=== PATIENT | male | born 1990 | race African-American/Black ===

== ENCOUNTER 2016-12-03 12:54 | Emergency (ER) | payer SELFPAY ==
[2016-12-03 13:26] VITALS: BP 128/75
--- NOTE | 2016-12-03 14:07 | UC ---
UC Dental HPI - HPI Summary HPI Summary: pain in left lower jaw, broken and painful lower 3 rd molar from the back (2 molar from the back has been removed) - History of Current Complaint Chief Complaint: UCDentalProblem Stated Complaint: TOOTH ACHE Time Seen by Provider: 12/03/16 13:50 Hx Obtained From: Patient Onset/Duration: Gradual Onset, Lasting Weeks, Worse Since - past few days Severity: Moderate Pain Intensity: 6 Pain Scale Used: 0-10 Numeric Aggravating: Heat, Cold, Chewing Related History: Previous Dental Care on Same Tooth, Swelling - Allergies/Home Medications Allergies/Adverse Reactions: Allergies Allergy/AdvReac Type Severity Reaction Status Date / Time No Known Allergies Allergy Verified 12/03/16 13:23 PMH/Surg Hx/FS Hx/Imm Hx Previously Healthy: Yes Endocrine History Of: Denies: Diabetes, Thyroid Disease Cardiovascular History Of: Denies: Cardiac Disorders, Hypertension Respiratory History Of: Denies: COPD, Asthma GI/ History Of: Denies: Ulcer - Surgical History Surgical History: None - Family History Known Family History: Positive: None Family History: denies cardio vascular issues in family lineage - Social History Occupation: Unemployed Lives: With Family Alcohol Use: None Substance Use Type: None Smoking Status (MU): Light Every Day Tobacco Smoker Have You Smoked in the Last Year: Yes Cessation Counseling: Counseled 3+Min - 10 Min Review of Systems Constitutional: Fever Skin: Negative Eyes: Negative ENT: Dental Pain Respiratory: Negative Cardiovascular: Negative Gastrointestinal: Negative Genitourinary: Negative Motor: Negative Neurovascular: Negative Musculoskeletal: Negative Neurological: Negative Psychological: Negative All Other Systems Reviewed And Are Negative: Yes Physical Exam Triage Information Reviewed: Yes Appearance: Well-Nourished, Ill-Appearing - mild, Pain Distress - mild Vital Signs: Initial Vital Signs Temp 99.2 F 12/03/16 13:23 Pulse 72 12/03/16 13:23 Resp 16 12/03/16 13:23 BP 128/75 12/03/16 13:23 Pulse Ox 98 12/03/16 13:23 Vital Signs Reviewed: Yes Eye Exam: Normal Eyes: Positive: Conjunctiva Clear ENT Exam: Normal ENT: Positive: Normal ENT inspection, Hearing grossly normal, Pharynx normal, TMs normal. Negative: Nasal congestion, Nasal drainage, Tonsillar swelling, Tonsillar exudate, Trismus, Muffled/hoarse voice Dental: Positive: Gross Decay/Caries @ - 3 molar from the last on left lower, Abscess @ - lower back Neck exam: Normal Neck: Positive: Supple, Nontender, No Lymphadenopathy Respiratory Exam: Normal Respiratory: Positive: Chest non-tender, Lungs clear, Normal breath sounds, No respiratory distress, No accessory muscle use Cardiovascular Exam: Normal Cardiovascular: Positive: RRR, No Murmur, Pulses Normal, Brisk Capillary Refill Musculoskeletal Exam: Normal Musculoskeletal: Positive: Strength Intact, ROM Intact, No Edema Neurological Exam: Normal Neurological: Positive: Alert, Muscle Tone Normal Psychological Exam: Normal Psychological: Positive: Normal Response To Family, Age Appropriate Behavior Skin Exam: Normal Dental Complaint Course/Dx - Course Course Of Treatment: amoxicillin, ibuprofen, resources for dental care and insurance, nicotine cesation education - Differential Dx/Diagnosis Differential Diagnosis/Dx: Dental Caries, Fractured Tooth, Peridontic Disease, Peritonsillar Abcess, Pharyngitis Provider Diagnoses: dental abscess dental caries left lower jaw, nicotine dependant Discharge - Discharge Plan Condition: Stable Disposition: HOME Prescriptions: Amoxicillin CAP* 500 mg PO TID #30 cap Ibuprofen TAB* [Motrin TAB* 600 MG] 600 mg PO Q6H PRN #40 tab PRN Reason: pain Patient Education Materials: Nicotine (By breathing), How to Stop Smoking (ED) , Dental Abscess (ED), Dental Caries (ED) Referrals: [facility] [Provider Group] - As Soon As Possible [facility] [[facility]] - If Needed Additional Instructions: Follow with Dentist early next week
== END 2016-12-03 14:20 | disposition home or self-care (01) ==
LOC: UCEAST 12:54
DX: K04.7 Periapical abscess without sinus (principal); K02.9 Dental caries, unspecified; F17.210 Nicotine dependence, cigarettes, uncomplicated
CPT/HCPCS: 99202; G0463

== ENCOUNTER 2017-03-09 07:23 | Emergency (ER) | payer SELFPAY ==
[2017-03-09 07:36] VITALS: BP 137/77
--- NOTE | 2017-03-09 08:09 | UC ---
Hand/Wrist HPI - HPI Summary HPI Summary: right hand pain x 1 day injury to right hand , pt. punched the wall using his right hand + pain and swelling of the right hand - History Of Current Complaint Chief Complaint: UCUpperExtremity Stated Complaint: RIGHT HAND INJURY Time Seen by Provider: 03/09/17 07:44 Hx Obtained From: Patient Onset/Duration: Sudden Onset, Lasting Days - 1, Still Present Severity Initially: Moderate Severity Currently: Moderate Character Of Pain: Aching, Throbbing Aggravating Factor(s): Movement, Lifting, Flexion, Extension Alleviating: Rest, Ice Associated Signs And Symptoms: Positive: Swelling, Weakness - Allergies/Home Medications Allergies/Adverse Reactions: Allergies Allergy/AdvReac Type Severity Reaction Status Date / Time No Known Allergies Allergy Verified 03/09/17 07:30 PMH/Surg Hx/FS Hx/Imm Hx Previously Healthy: Yes Endocrine History Of: Denies: Diabetes, Thyroid Disease Cardiovascular History Of: Denies: Cardiac Disorders, Hypertension Respiratory History Of: Denies: COPD, Asthma GI/ History Of: Denies: Ulcer - Surgical History Surgical History: None - Family History Known Family History: Positive: None Negative: Diabetes Family History: denies cardio vascular issues in family lineage - Social History Alcohol Use: None Substance Use Type: None Smoking Status (MU): Former Smoker Have You Smoked in the Last Year: Yes When Did the Patient Quit Smoking/Using Tobacco: 6 months ago Review of Systems Constitutional: Negative Skin: Negative Eyes: Negative ENT: Negative Respiratory: Negative Musculoskeletal: Other: - right hand pain All Other Systems Reviewed And Are Negative: Yes Physical Exam Triage Information Reviewed: Yes Appearance: Well-Appearing, No Pain Distress, Well-Nourished Vital Signs: Initial Vital Signs Temp 98.9 F 03/09/17 07:31 Pulse 64 03/09/17 07:31 Resp 18 03/09/17 07:31 BP 137/77 03/09/17 07:31 Pulse Ox 98 03/09/17 07:31 Eyes: Positive: Conjunctiva Clear ENT: Positive: Normal ENT inspection, Hearing grossly normal, Pharynx normal Neck exam: Normal Neck: Positive: Supple, Nontender, No Lymphadenopathy Respiratory: Positive: Chest non-tender, Lungs clear, Normal breath sounds, No respiratory distress Cardiovascular: Positive: RRR, No Murmur, Pulses Normal Abdominal Exam: Normal Musculoskeletal: Positive: Other: - right hand : + swelling, tenderness 3,4,5, metacarpal bone , limited ROM on flexion Diagnostics - Laboratory ABG Interpretation: right hand : no acute fracture seen Hand/Wrist Course/Dx - Differential Dx/Diagnosis Provider Diagnoses: contusion right hand Discharge - Discharge Plan Condition: Stable Disposition: HOME Patient Education Materials: Contusion in Adults (ED) Referrals: No Primary Care Phys,NOPCP [Primary Care Provider] - 7 Days Additional Instructions: contusion hand xray showed old fracture , no new fracture cont. with rest, ice, ibuprofen as needed for pain
--- NOTE | 2017-03-09 08:17 | RAD ---
INDICATION: Right hand pain COMPARISON: None TECHNIQUE: AP, lateral, and oblique views were obtained. FINDINGS: There is no acute fracture. There is mild deformity of the fifth metacarpal consistent with an old fracture. There is minor soft tissue swelling over the dorsum of the hand. IMPRESSION: NO ACUTE FRACTURE. OLD FIFTH METACARPAL FRACTURE
== END 2017-03-09 08:32 | disposition home or self-care (01) ==
LOC: UCCORT 07:23
DX: S60.221A Contusion of right hand, initial encounter (principal); W22.8XXA Striking against or struck by other objects, initial encounter; Y93.9 Activity, unspecified; Y92.9 Unspecified place or not applicable; Z87.891 Personal history of nicotine dependence
CPT/HCPCS: 99211; G0463

== ENCOUNTER 2017-04-07 11:15 | Emergency (ER) | payer SELFPAY ==
[2017-04-07 11:36] VITALS: BP 106/64
[2017-04-07] MEDS ORDERED: Ondansetron ODT TAB* 4 MG PO ONE (11:58)
--- NOTE | 2017-04-07 12:00 | UC ---
Abdominal Pain Male HPI - HPI Summary HPI Summary: 26 yo male with 1 day hx n/v/d chills crampy abd pain GF had similar symptoms a few days ago that have since resolved - History of Current Complaint Chief Complaint: UCGI Stated Complaint: VOMITING/DIARRHEA Time Seen by Provider: 04/07/17 11:54 Hx Obtained From: Patient Onset/Duration: Sudden Onset, Lasting Hours, Lasting Days Timing: Constant Severity Initially: Moderate Severity Currently: Moderate Pain Intensity: 2 Pain Scale Used: 0-10 Numeric Location: Diffuse, Epigastric Radiates: No Character: Colicy Aggravating Factor(s):: Food Alleviating Factor(s): Rest Associated Signs And Symptoms: Positive: Decreased Appetite, Nausea, Vomiting - 5-10, Diarrhea - 10+. Negative: Diaphoresis, Fever, Cough, Chest Pain, Dizzy, Back Pain, Constipation, Blood in Stool, Urinary Symptoms, Penile Discharge - Allergies/Home Medications Allergies/Adverse Reactions: Allergies Allergy/AdvReac Type Severity Reaction Status Date / Time No Known Allergies Allergy Verified 03/09/17 07:30 PMH/Surg Hx/FS Hx/Imm Hx Previously Healthy: Yes Endocrine History Of: Denies: Diabetes, Thyroid Disease Cardiovascular History Of: Denies: Cardiac Disorders, Hypertension Respiratory History Of: Denies: COPD, Asthma GI/ History Of: Denies: Ulcer - Surgical History Surgical History: None - Family History Known Family History: Positive: Hypertension Negative: Diabetes Family History: denies cardio vascular issues in family lineage - Social History Alcohol Use: None Substance Use Type: None Smoking Status (MU): Former Smoker Have You Smoked in the Last Year: Yes When Did the Patient Quit Smoking/Using Tobacco: 6 months ago Review of Systems Constitutional: Negative Skin: Negative Eyes: Negative ENT: Negative Respiratory: Negative Cardiovascular: Negative Gastrointestinal: Abdominal Pain, Vomiting, Diarrhea Genitourinary: Negative Motor: Negative Neurovascular: Negative Musculoskeletal: Negative Neurological: Negative Psychological: Negative All Other Systems Reviewed And Are Negative: Yes Physical Exam Triage Information Reviewed: Yes Appearance: Well-Appearing, No Pain Distress, Well-Nourished Vital Signs: Initial Vital Signs Pulse 100 04/07/17 11:32 Resp 18 04/07/17 11:32 BP 106/64 04/07/17 11:32 Pulse Ox 99 04/07/17 11:32 temp 100 Vital Signs Reviewed: Yes Eyes: Positive: Conjunctiva Clear ENT: Positive: Hearing grossly normal, Other: - moist mucous membranes. Negative: Nasal congestion, TMs normal, Trismus, Muffled/hoarse voice Neck: Positive: Supple, Nontender, No Lymphadenopathy Respiratory: Positive: Lungs clear, Normal breath sounds, No respiratory distress Cardiovascular: Positive: RRR, No Murmur Abdomen Description: Positive: No Organomegaly, Soft. Negative: Nontender - epigastrice tenderness (slight), CVA Tenderness (R), CVA Tenderness (L) Bowel Sounds: Positive: Present Musculoskeletal: Positive: ROM Intact, No Edema Neurological: Positive: Alert Psychological Exam: Normal Skin Exam: Normal Abd Pain Male Course/Dx - Differential Dx/Clinical Impression Provider Diagnoses: gastroenteritis Discharge - Discharge Plan Condition: Stable Disposition: HOME Prescriptions: Ondansetron TAB* [Zofran 4 MG Tab*] 4 mg PO Q6H PRN #10 tab PRN Reason: Nausea Patient Education Materials: Gastroenteritis (ED) Forms: *Work Release Referrals: No Primary Care Phys,NOPCP [Primary Care Provider] - Additional Instructions: recheck in AM if not better
== END 2017-04-07 12:09 | disposition home or self-care (01) ==
LOC: UCEAST 11:15
DX: K52.9 Noninfective gastroenteritis and colitis, unspecified (principal); Z87.891 Personal history of nicotine dependence
CPT/HCPCS: 99212; A9270-GY; G0463

== ENCOUNTER 2017-06-12 16:36 | Emergency (ER) | payer SELFPAY ==
[2017-06-12 16:56] VITALS: BP 97/51
--- NOTE | 2017-06-12 18:03 | UC ---
Dental HPI - HPI Summary HPI Summary: Woke at 0300 this morning with dental pain on R side of mouth. Thinks it might have been from eating starburst candy yesterday. Denies fever, swelling, or facial redness. Also needs a work note for today. - History of Current Complaint Chief Complaint: UCDentalProblem Stated Complaint: DENTAL PAIN Time Seen by Provider: 06/12/17 17:49 Hx Obtained From: Patient Onset/Duration: Sudden Onset, Lasting Hours Severity: Moderate Aggravating: Chewing Alleviating: OTC Meds - Allergies/Home Medications Allergies/Adverse Reactions: Allergies Allergy/AdvReac Type Severity Reaction Status Date / Time No Known Allergies Allergy Verified 06/12/17 16:56 PMH/Surg Hx/FS Hx/Imm Hx Previously Healthy: Yes - Surgical History Surgical History: None - Family History Known Family History: Positive: None, Hypertension Negative: Diabetes Family History: denies cardio vascular issues in family lineage - Social History Occupation: Employed Part-time Alcohol Use: None Substance Use Type: None Smoking Status (MU): Former Smoker Have You Smoked in the Last Year: Yes When Did the Patient Quit Smoking/Using Tobacco: 6 months ago Review of Systems Constitutional: Negative Skin: Negative Eyes: Negative ENT: Dental Pain Respiratory: Negative Cardiovascular: Negative Gastrointestinal: Negative Genitourinary: Negative Motor: Negative Neurovascular: Negative Musculoskeletal: Negative Neurological: Negative Psychological: Negative All Other Systems Reviewed And Are Negative: Yes Physical Exam Triage Information Reviewed: Yes Appearance: Well-Appearing, No Pain Distress, Well-Nourished Vital Signs: Initial Vital Signs Temp 98.5 F 06/12/17 16:52 Pulse 77 06/12/17 16:52 Resp 16 06/12/17 16:52 BP 97/51 06/12/17 16:52 Pulse Ox 98 06/12/17 16:52 Vital Signs Reviewed: Yes Eye Exam: Normal Eyes: Positive: Conjunctiva Clear ENT Exam: Normal ENT: Positive: Normal ENT inspection, Hearing grossly normal, Pharynx normal, TMs normal Dental: Positive: Percussion Tenderness @ - #4 and #30, Gross Decay/Caries @ - # 4 and #30. Negative: Abscess @ Neck exam: Normal Respiratory Exam: Normal Respiratory: Positive: Chest non-tender, Lungs clear, Normal breath sounds, No respiratory distress, No accessory muscle use Cardiovascular Exam: Normal Cardiovascular: Positive: RRR, No Murmur Musculoskeletal Exam: Normal Neurological Exam: Normal Neurological: Positive: Alert Psychological Exam: Normal Skin Exam: Normal Dental Complaint Course/Dx - Differential Dx/Diagnosis Provider Diagnoses: toothaches #4 and #30 Discharge - Discharge Plan Condition: Stable Disposition: HOME Prescriptions: Naproxen TAB* [Naprosyn 375 mg TAB*] 375 mg PO Q8H #20 tab Penicillin VK 500 MG TAB(NF) [Penicillin VK 500 mg Tab] 500 mg PO QID #28 tab Patient Education Materials: Toothache (ED) Forms: *Work Release Referrals: No Primary Care Phys,NOPCP [Primary Care Provider] - Additional Instructions: Please follow up with a dentist as soon as possible. It is very likely that your pain will turn into bigger problems, such as dental abscess, without treatment.
== END 2017-06-12 18:06 | disposition home or self-care (01) ==
LOC: UCCORT 16:36
DX: K08.89 Other specified disorders of teeth and supporting structures (principal); Z87.891 Personal history of nicotine dependence
CPT/HCPCS: 99212; G0463

== ENCOUNTER 2017-08-12 15:48 | Emergency (ER) | payer SELFPAY ==
--- NOTE | 2017-08-12 17:32 | UC ---
UC General HPI - HPI Summary HPI Summary: 26 year old male here for upset stomach. pt called in to work today and needs to have a note saying that he was seen here at urgent care. He states he woke up with an upset stomach and felt he could not work today. Had some nausea and vomiting this Am about 3 am which has since resolved but it caused him to have to call in to work today and denies fevers or blood in vomit and sx resolved at this time but appetite not quite returned at this time . no diarrhea [ End ] - History of Current Complaint Chief Complaint: UCGeneralIllness Stated Complaint: WORK NOTE Time Seen by Provider: 08/12/17 17:30 Hx Obtained From: Patient Onset/Duration: Sudden Onset Onset Severity: Moderate Current Severity: None - Allergy/Home Medications Allergies/Adverse Reactions: Allergies Allergy/AdvReac Type Severity Reaction Status Date / Time No Known Allergies Allergy Verified 08/12/17 17:03 Home Medications: Home Medications NK [No Home Medications Reported] 08/12/17 [History Confirmed 08/12/17] PMH/Surg Hx/FS Hx/Imm Hx Previously Healthy: Yes - Surgical History Surgical History: None - Family History Known Family History: Positive: None, Hypertension Negative: Diabetes Family History: denies cardio vascular issues in family lineage - Social History Occupation: Employed Full-time - [employer] Lives: With Family Alcohol Use: None Substance Use Type: None Smoking Status (MU): Former Smoker Have You Smoked in the Last Year: Yes When Did the Patient Quit Smoking/Using Tobacco: 02/2017 Review of Systems Gastrointestinal: Vomiting, Nausea All Other Systems Reviewed And Are Negative: Yes Physical Exam Triage Information Reviewed: Yes Appearance: Well-Appearing, No Pain Distress, Well-Nourished Vital Signs: Initial Vital Signs Temp 98.4 F 08/12/17 16:56 Pulse 82 08/12/17 16:56 Resp 14 08/12/17 16:56 BP 179/54 08/12/17 16:56 Pulse Ox 99 08/12/17 16:56 Vital Signs Reviewed: Yes Eye Exam: Normal ENT Exam: Normal Dental Exam: Normal Neck exam: Normal Neck: Positive: 1 Respiratory Exam: Normal Cardiovascular Exam: Normal Abdominal Exam: Normal Abdomen Description: Positive: Nontender, No Organomegaly, Soft Musculoskeletal Exam: Normal Neurological Exam: Normal Psychological Exam: Normal Skin Exam: Normal Course/Dx - Differential Dx - Multi-Symptom Provider Diagnoses: Gastroenteritis Viral Discharge - Discharge Plan Condition: Good Disposition: HOME Patient Education Materials: Acute Nausea and Vomiting (ED) Forms: *Work Release Referrals: No Primary Care Phys,NOPCP [Primary Care Provider] - If Needed (Please follow up with a primary care physician in the future )
[2017-08-12 17:43] VITALS: BP 108/65
== END 2017-08-12 17:52 | disposition home or self-care (01) ==
LOC: UCCORT 15:48
DX: A08.4 Viral intestinal infection, unspecified (principal); Z87.891 Personal history of nicotine dependence
CPT/HCPCS: 99211; G0463

== ENCOUNTER 2018-01-23 13:26 | Emergency (ER) | payer SELFPAY ==
[2018-01-23 14:56] VITALS: BP 112/70
--- NOTE | 2018-01-23 15:25 | UC ---
Dental HPI - HPI Summary HPI Summary: pt with progressive left lower dental pain and jaw swelling x 3 days. Pt with h/ o dental caries. Little relief with motrin. no difficult swallowing, drooling. no dentist. Pt treated for dental abscess approx 6 months ago. no chau, vision changes. No trauma. pt's medications reviewed this visit. - History of Current Complaint Chief Complaint: UCDentalProblem Stated Complaint: DENTAL PAIN Time Seen by Provider: 01/23/18 15:07 Hx Obtained From: Patient Onset/Duration: Gradual Onset Severity: Moderate Pain Intensity: 7 Pain Scale Used: 0-10 Numeric - Allergies/Home Medications Allergies/Adverse Reactions: Allergies Allergy/AdvReac Type Severity Reaction Status Date / Time No Known Allergies Allergy Verified 01/23/18 14:48 Home Medications: Home Medications Ibuprofen TAB* [Advil TAB*] 800 mg PO Q6H PRN 01/23/18 [History Confirmed ] PMH/Surg Hx/FS Hx/Imm Hx Previously Healthy: Yes - Surgical History Surgical History: None - Family History Known Family History: Positive: None, Hypertension Negative: Diabetes Family History: denies cardio vascular issues in family lineage - Social History Occupation: Employed Part-time - [employer] Lives: With Family Alcohol Use: Daily Substance Use Type: None Smoking Status (MU): Former Smoker Have You Smoked in the Last Year: Yes When Did the Patient Quit Smoking/Using Tobacco: 02/2017 Review of Systems Constitutional: Negative Skin: Negative ENT: Dental Pain All Other Systems Reviewed And Are Negative: Yes Physical Exam Triage Information Reviewed: Yes Appearance: Well-Appearing, No Pain Distress, Well-Nourished Vital Signs: Initial Vital Signs Temp 99.5 F 01/23/18 14:49 Pulse 67 01/23/18 14:49 Resp 18 01/23/18 14:49 BP 112/70 01/23/18 14:49 Pulse Ox 99 01/23/18 14:49 Vital Signs Reviewed: Yes Eye Exam: Normal Eyes: Positive: Conjunctiva Clear ENT Exam: Normal ENT: Positive: Normal ENT inspection, Hearing grossly normal, Pharynx normal, TMs normal, Other - left lower mandible line with mild edema no warmth, no erythema. no TMJ pain no intraoral edema Dental: Positive: Other: - + dental caries. + TTP #19 edema and tender at gumline, no flucutance Neck exam: Normal Neck: Positive: Supple, Nontender, Other: - mild left sub mandibular LA no fluctuance Respiratory Exam: Normal Respiratory: Positive: Chest non-tender, Lungs clear, Normal breath sounds, No respiratory distress, No accessory muscle use Cardiovascular Exam: Normal Cardiovascular: Positive: RRR, No Murmur, Pulses Normal Musculoskeletal Exam: Normal Neurological Exam: Normal Psychological Exam: Normal Skin Exam: Normal Dental Complaint Course/Dx - Course Course Of Treatment: pt with progressive dental discomfort and facial swelling. Pt with tenderness and edema around #18. abx. swish/spit. motrin/apap. return precautions. dental list given - Differential Dx/Diagnosis Provider Diagnoses: dental abscess Discharge - Discharge Plan Condition: Stable Disposition: HOME Prescriptions: Amoxicillin PO (*) [Amoxicillin 500 MG CAP*] 500 mg PO TID #30 cap Patient Education Materials: Dental Abscess (ED) Referrals: No Primary Care Phys,NOPCP [Primary Care Provider] - Additional Instructions: - Okay to alternate ibuprofen (advil, motrin) 600mg and tylenol every 3 hours for pain. Take with food. Do NOT take for more than 4-5 days - Take antibiotic as prescribed until gone - swish and spit with warm salt water 2-3 times a day - contact a dentist from the list provided to schedule a follow-up appointment. Okay to go to the walk [facility] clinics as outlined on the paperwork
== END 2018-01-23 15:32 | disposition home or self-care (01) ==
LOC: UCCORT 13:26
DX: K04.7 Periapical abscess without sinus (principal)
CPT/HCPCS: 99212; G0463

== ENCOUNTER 2018-03-13 10:33 | Emergency (ER) | payer SELFPAY ==
[2018-03-13 10:47] VITALS: BP 123/64
[2018-03-13] MEDS ORDERED: Ondansetron ODT TAB* 4 MG PO ONE (11:03)
--- NOTE | 2018-03-13 11:03 | UC ---
Abdominal Pain Male HPI - HPI Summary HPI Summary: C/O 2 day history of nausea and vomiting with diarrhea. Emesis x 1 today. No diarrhea. - History of Current Complaint Chief Complaint: UCGI Stated Complaint: STOMACH ACHE Time Seen by Provider: 03/13/18 10:53 Hx Obtained From: Patient Onset/Duration: Sudden Onset, Lasting Days - 2 Severity Initially: Moderate Severity Currently: Mild Pain Intensity: 0 Location: Epigastric Radiates: No Character: Cramping Aggravating Factor(s): Food Alleviating Factor(s): Nothing Associated Signs And Symptoms: Positive: Nausea, Vomiting, Diarrhea - Risk Factors Cardiac Risk Factors: Negative - Allergies/Home Medications Allergies/Adverse Reactions: Allergies Allergy/AdvReac Type Severity Reaction Status Date / Time No Known Allergies Allergy Verified 03/13/18 10:47 PMH/Surg Hx/FS Hx/Imm Hx Previously Healthy: Yes - Surgical History Surgical History: None - Family History Known Family History: Positive: None, Hypertension Negative: Diabetes Family History: denies cardio vascular issues in family lineage - Social History Occupation: Employed Full-time Lives: With Family Alcohol Use: Daily Alcohol Amount: 3 beers per day Substance Use Type: None Smoking Status (MU): Former Smoker Have You Smoked in the Last Year: Yes When Did the Patient Quit Smoking/Using Tobacco: 02/2017 Review of Systems Constitutional: Chills Gastrointestinal: Vomiting, Diarrhea Is Patient Immunocompromised?: No All Other Systems Reviewed And Are Negative: Yes Physical Exam Triage Information Reviewed: Yes Appearance: No Pain Distress, Well-Nourished, Ill-Appearing - mild Vital Signs: Initial Vital Signs Temp 98.5 F 03/13/18 10:42 Pulse 82 03/13/18 10:42 Resp 18 03/13/18 10:42 BP 123/64 03/13/18 10:42 Pulse Ox 98 03/13/18 10:42 Vital Signs Reviewed: Yes Eyes: Positive: Conjunctiva Clear ENT: Positive: Pharynx normal, TMs normal Neck exam: Normal Respiratory Exam: Normal Cardiovascular Exam: Normal Abdomen Description: Positive: No Organomegaly. Negative: Nontender - epigastric tenderness, McBurney's Point Tenderness, Peritoneal Signs Bowel Sounds: Positive: Present Musculoskeletal Exam: Normal Neurological Exam: Normal Psychological Exam: Normal Skin Exam: Normal Re-Evaluation - Re-Evaluation First Eval Re-Evaluation Time: 11:38 Change: Improved - feeling less nauseated after the zofran Abd Pain Male Course/Dx - Differential Dx/Clinical Impression Differential Diagnosis/HQI/PQRI: Appendicitis, Constipation, Hepatitis Provider Diagnoses: Viral gastroenteritis Discharge - Sign-Out/Discharge Documenting (check all that apply): Discharge - Discharge Plan Condition: Stable Disposition: HOME Prescriptions: Ondansetron ODT TAB* [Zofran 4 MG Odt TAB*] 4 mg PO Q6H PRN #14 tab.odt PRN Reason: Nausea/Vomiting Patient Education Materials: Gastroenteritis (ED), Ondansetron (By mouth) Forms: *Work Release Referrals: No Primary Care Phys,NOPCP [Primary Care Provider] - - Billing Disposition and Condition Condition: STABLE Disposition: HOME
== END 2018-03-13 11:58 | disposition home or self-care (01) ==
LOC: UCCORT 10:33
DX: A08.4 Viral intestinal infection, unspecified (principal); Z87.891 Personal history of nicotine dependence
CPT/HCPCS: 99212; A9270-GY; G0463

== ENCOUNTER 2018-05-10 14:33 | Emergency (ER) | payer SELFPAY ==
[2018-05-10 15:22] VITALS: BP 117/70
--- NOTE | 2018-05-10 15:25 | UC ---
Respiratory Complaint HPI - HPI Summary HPI Summary: 27 yo male with a 2 day hx of sore throat/nasal congestion/chest tightness and productive cough no n/v/d no SOB - History of Current Complaint Chief Complaint: UCGeneralIllness Stated Complaint: COUGH/SINUS CONGESTION Time Seen by Provider: 05/10/18 15:18 Hx Obtained From: Patient Onset/Duration: Gradual Onset, Lasting Days Timing: Constant Severity Initially: Moderate Severity Currently: Moderate Pain Intensity: 5 Pain Scale Used: 0-10 Numeric Character: Cough: Productive Aggravating Factors: Nothing Alleviating Factors: Nothing Associated Signs And Symptoms: Positive: Fever, URI, Nasal Congestion, Hoarseness, Sinus Discomfort - Allergies/Home Medications Allergies/Adverse Reactions: Allergies Allergy/AdvReac Type Severity Reaction Status Date / Time No Known Allergies Allergy Verified 05/10/18 15:21 PMH/Surg Hx/FS Hx/Imm Hx Previously Healthy: Yes Respiratory History: Asthma - as child, Pneumonia - Surgical History Surgical History: None - Family History Known Family History: Positive: Hypertension Negative: Diabetes Family History: denies cardio vascular issues in family lineage - Social History Alcohol Use: Occasionally Alcohol Amount: 3 beers per day Substance Use Type: None Smoking Status (MU): Heavy Every Day Tobacco Smoker Type: Cigarettes Amount Used/How Often: 1/2 PPD Have You Smoked in the Last Year: Yes When Did the Patient Quit Smoking/Using Tobacco: 02/2017 Review of Systems Constitutional: Fever, Chills Skin: Negative Eyes: Negative ENT: Sore Throat, Sinus Congestion, Sinus Pain/Tenderness Respiratory: Cough Cardiovascular: Negative Gastrointestinal: Negative Genitourinary: Negative Motor: Negative Neurovascular: Negative Musculoskeletal: Negative Neurological: Negative Psychological: Negative Is Patient Immunocompromised?: No All Other Systems Reviewed And Are Negative: Yes Physical Exam Triage Information Reviewed: Yes Appearance: Well-Appearing, No Pain Distress, Well-Nourished Vital Signs: Initial Vital Signs Temp 99.3 F 05/10/18 15:19 Pulse 81 05/10/18 15:19 Resp 13 05/10/18 15:19 BP 117/70 05/10/18 15:19 Pulse Ox 100 05/10/18 15:19 Vital Signs Reviewed: Yes Eyes: Positive: Conjunctiva Clear ENT: Positive: Hearing grossly normal, Pharyngeal erythema, Nasal congestion, Nasal drainage, TMs normal, Sinus tenderness, Uvula midline. Negative: TM red, Tonsillar swelling, Tonsillar exudate, Trismus, Muffled voice, Dental tenderness Neck: Positive: Supple, Nontender, No Lymphadenopathy Respiratory: Positive: Lungs clear, Normal breath sounds, No respiratory distress, No accessory muscle use, Wheezing - with forced exp only Cardiovascular: Positive: RRR, No Murmur, Pulses Normal Musculoskeletal: Positive: ROM Intact, No Edema Neurological Exam: Normal Neurological: Positive: Alert Psychological Exam: Normal Skin Exam: Normal UC Diagnostic Evaluation - Laboratory O2 Sat by Pulse Oximetry: 100 - normal/not hypoxic Respiratory Course/Dx - Differential Dx/Diagnosis Provider Diagnoses: acute bronchitis Discharge - Sign-Out/Discharge Documenting (check all that apply): Discharge/Admit/Transfer - Discharge Plan Condition: Stable Disposition: HOME Prescriptions: Amoxicillin PO (*) [Amoxicillin 875 MG (*)] 875 mg PO BID #14 tab Benzonatate CAP* [Tessalon CAP*] 100 - 200 mg PO TID PRN #[id number] cap PRN Reason: Cough Patient Education Materials: Acute Bronchitis (ED) Forms: *Work Release Referrals: No Primary Care Phys,NOPCP [Primary Care Provider] - - Billing Disposition and Condition Condition: STABLE Disposition: Home
== END 2018-05-10 15:37 | disposition home or self-care (01) ==
LOC: UCCORT 14:33
DX: J20.9 Acute bronchitis, unspecified (principal); F17.210 Nicotine dependence, cigarettes, uncomplicated
CPT/HCPCS: 99212; G0463

== ENCOUNTER 2018-05-17 21:04 | Emergency (ER) | payer SELFPAY ==
[2018-05-17 21:25] VITALS: BP 102/59
[2018-05-17] MEDS ORDERED: Tetracaine 0.5% OPTH.SOL 4 ML* 1 DROP BTL LEFT EYE ONE (21:30)
[2018-05-17] MEDS ORDERED: Fluorescein Sod TOPICAL 0.6* 0.6 MG TEST OPHTHALMIC ONE ×2 (21:31→21:32)
[2018-05-17] MEDS ORDERED: Tetracaine 0.5% OPTH.SOL 4 ML* 1 DROP BTL ONE (21:32)
[2018-05-17] MEDS ORDERED: Polymyx/Trimethoprim OPTH* 10 ML BTL LEFT EYE ONE (21:42)
[2018-05-17] MEDS ORDERED: HYDROcodone/ACETAMIN 5-325 MG* 1 TAB PO ONE (21:43)
--- NOTE | 2018-05-17 21:55 | UC ---
Eye Complaint HPI - HPI Summary HPI Summary: 27 YO MALE AWOKE TODAY FROM A NAP WITH L EYE PAIN AND PHOTOPHOBIA HE HAS A FB SENSATION UNDER LEFT UPPER LID HAS BEEN RUBBING HIS EYE EVER SINCE - History of Current Complaint Chief Complaint: UCEye Stated Complaint: LEFT EYE COMPLAINT Time Seen by Provider: 05/17/18 21:26 Hx Obtained From: Patient Onset/Duration: Sudden Onset, Lasting Hours - 2 Timing: Constant Severity Initially: Moderate Severity Currently: Moderate Pain Intensity: 8 Pain Scale Used: 0-10 Numeric Location of Injury: Conjunctiva, Eye Lid (upper) Character: Foreign Body Sensation Associated Signs And Symptoms: Positive: Photophobia Eyes: 1 - LARGE CURVILINEAR FLUORESCEIN STAINING DEFECT - Allergies/Home Medications Allergies/Adverse Reactions: Allergies Allergy/AdvReac Type Severity Reaction Status Date / Time No Known Allergies Allergy Verified 05/17/18 21:16 PMH/Surg Hx/FS Hx/Imm Hx Previously Healthy: Yes - Surgical History Surgical History: None - Family History Known Family History: Positive: None, Hypertension Negative: Diabetes Family History: denies cardio vascular issues in family lineage - Social History Alcohol Use: Occasionally Alcohol Amount: 3 beers per day Substance Use Type: None Smoking Status (MU): Heavy Every Day Tobacco Smoker Type: Cigarettes Amount Used/How Often: 1/2 PPD Have You Smoked in the Last Year: Yes When Did the Patient Quit Smoking/Using Tobacco: 02/2017 Review of Systems Constitutional: Negative Skin: Negative Eyes: Photophobia ENT: Negative Respiratory: Negative Cardiovascular: Negative Gastrointestinal: Negative Genitourinary: Negative Motor: Negative Neurovascular: Negative Musculoskeletal: Negative Neurological: Negative Psychological: Negative Is Patient Immunocompromised?: No All Other Systems Reviewed And Are Negative: Yes Physical Exam Triage Information Reviewed: Yes Appearance: Well-Appearing, No Pain Distress, Well-Nourished Vital Signs: Initial Vital Signs Temp 99.1 F 05/17/18 21:17 Pulse 87 05/17/18 21:17 Resp 18 05/17/18 21:17 BP 102/59 05/17/18 21:17 Pulse Ox 97 05/17/18 21:17 Vital Signs Reviewed: Yes Eyes: Positive: Conjunctiva Inflamed ENT: Positive: Hearing grossly normal. Negative: Nasal congestion, Nasal drainage, Tonsillar swelling, Tonsillar exudate, Hoarse voice Neck: Positive: Supple, Nontender Respiratory: Positive: Lungs clear, Normal breath sounds, No respiratory distress Eye Complaint Course/Dx - Differential Dx/Diagnosis Provider Diagnoses: LARGE LEFT CORNEAL ABRASION Discharge - Sign-Out/Discharge Documenting (check all that apply): Discharge/Admit/Transfer - Discharge Plan Condition: Stable Disposition: HOME Patient Education Materials: Corneal Abrasion (ED) Referrals: Raul Dodson MD [Medical Doctor] - 1 Day (AUTOMATION DESIGN ENGINEER) Kareen France MD [Medical Doctor] - 1 Day (AUTOMATION DESIGN ENGINEER) Additional Instructions: ibuprofen use antibiotic drops as directed don't rub your eye the foreign body sensation under your upper lid is due to referred pain from your corneal abrasion THIS IS A LARGE INJURY THIS SHOULD BE SEEN BY AN AUTOMATION DESIGN ENGINEER IT WILL NEED TO BE FOLLOWED CLOSELY TO ASSURE PROPER HEALING IF YOU ARE UNABLE TO SEE ONE HERE AT [place] I SUGGEST YOU GO TO THE ER AT [facility] IN [place] YOU MAY BENEFIT FROM A BANDAGE CONTACT - Billing Disposition and Condition Condition: STABLE Disposition: Home
== END 2018-05-17 22:07 | disposition home or self-care (01) ==
LOC: UCCORT 21:04
DX: S05.02XA Injury of conjunctiva and corneal abrasion without foreign body, left eye, initial encounter (principal); X58.XXXA Exposure to other specified factors, initial encounter; Y93.9 Activity, unspecified; Y92.9 Unspecified place or not applicable; F17.210 Nicotine dependence, cigarettes, uncomplicated
CPT/HCPCS: 99213; A9270-GY; G0463